=== PATIENT | male | born 1955 | race Caucasian/White ===

== ENCOUNTER 2024-10-22 02:41 | Emergency (ER) | payer MEDICARE ==
[~2024-10-22] VITALS: Ht 180.3 cm; Wt 105.2 kg
[2024-10-22 03:07] LABS: BASO # 0.1 10*3/uL (0.0-0.1); BASO % 0.3 % (0.0-1.0); EOS % 0.1 % (1.0-4.0); HEMATOCRIT 43.2 % (42.0-52.0); MEAN CORPUSCULAR HGB 29.1 pg (27.0-31.0); MEAN CORPUSCULAR HGB CONC 34.3 g/dl (33.0-37.0); MEAN PLATELET VOLUME 10.8 fl (9.6-12.3); MONO # 0.4 10*3/uL (0.1-1.0); MONO % 2.7 % (3.0-9.0); NEUT # 12.8 10*3/uL (2.3-7.9); PLATELET COUNT AUTOMATED 264 10*3/uL (130-400); RED BLOOD COUNT 5.08 10*6/uL (4.50-5.90); RED CELL DISTRI WIDTH 12.8 % (0-14.5); WHITE BLOOD COUNT 14.3 10*3/uL (4.8-10.8)
[2024-10-22 03:31] LABS: ALKALINE PHOSPHATASE 48 U/L (46-116); BUN 17 mg/dl (9-23); CHLORIDE 110 mmol/L (98-107); LIPASE 37 U/L (12-53); POTASSIUM 3.8 mmol/L (3.4-5.1); SGPT/ALT 25 U/L (5-49); TOTAL PROTEIN 7.4 gm/dL (6.0-8.0)
[2024-10-22] MEDS ORDERED: MG-AL HYDROXIDE/SIMETICONE 30 ML UDC PO STA (03:45)
[2024-10-22] MEDS ORDERED: Lidocaine Hydrochloride 15 ML UDC PO STA (03:45)
[2024-10-22] MEDS ORDERED: Dicyclomine Hydrochloride 20 MG/10 ML OSYR PO STA (03:45)
[2024-10-22] MEDS ORDERED: ATENOLOL50 M1 PO (07:18)
[2024-10-22] MEDS ORDERED: AMLODIPINE BESY10 MG PO (07:18)
[2024-10-22] MEDS ORDERED: OMEPRAZOLE40 MG PO (07:19)
[2024-10-22] MEDS ORDERED: LOSARTAN POTASS25 M1 PO (07:19)
[2024-10-22 09:45] VITALS: BP 176/71
[2024-10-22] MEDS ORDERED: COZAAR25 M1 PO (09:47)
[2024-10-22] MEDS ORDERED: MULTIVITAMIN1 EACH PO (09:47)
[2024-10-22] MEDS ORDERED: NORVASC2.5 MG PO (09:47)
[2024-10-22] MEDS ORDERED: GLUCOSAMINE-CH1 EACH PO (09:48)
[2024-10-22] MEDS ORDERED: Ondansetron4 MG PO (10:22)
== END 2024-10-22 10:25 | disposition home or self-care (01) ==
LOC: ED 02:41
PROVIDERS: Internal Medicine
DX: K52.9 Noninfective gastroenteritis and colitis, unspecified (principal); R10.10 Upper abdominal pain, unspecified; K21.9 Gastro-esophageal reflux disease without esophagitis; Z90.49 Acquired absence of other specified parts of digestive tract